=== PATIENT | female | born 1990 | race Caucasian/White ===

== ENCOUNTER 2020-04-23 12:26 | Outpatient (CLI) | payer OTHER ==
--- NOTE | 2020-04-24 16:41 | Ultrasound Report ---
PROCEDURE: OB F/U or Repeat INDICATIONS: SUPERVISION OF NORMAL , ULCERATIVE COLITI OUTSIDE/PRIOR DATING DATA: Last menstrual period (LMP): 08/20/2019. LMP-based estimated date of delivery (ANNA): 05/26/2020. First dating scan (date and location): 04/23/2020. Estimated date of delivery (ANNA) from first dating scan: 05/22/2020. TECHNIQUE: Real-time scanning was performed of the fetus, with image documentation and biometric measurements. COMPARISON: None. FINDINGS: General: A single living intrauterine gestation is present. Presentation: Vertex Placenta: Placental position is posterior fundal, without previa. Amniotic fluid index: 14.9 cm, within normal limits for gestational age. Largest pocket 4.25 cm. heart rate: 165 beats per minute. Maternal cervical canal: 4.5 cm long; normal length is 2.5 cm or more. biometrics: Biparietal diameter: 8.9 cm 36 weeks 2 days Head circumference: 33.6 cm 38 weeks 3 days Abdominal circumference: 31.1 cm 35 weeks 0 days Femur length: 6.5 cm 33 weeks 4 days Estimated gestational age from initial scan: not applicable. Composite gestational age from present scan: 35 weeks 6 days Estimated weight: 2594 g Measurement variability in biometric dating: +/- 10 days from 12-20 weeks gestation, +/- 2 weeks from 20-30 weeks gestation, +/- 3 weeks at 30 weeks gestation or more. Other: Not applicable. IMPRESSION: 1. Single live intrauterine with ultrasound gestational age today of 35 weeks 6 days with u ltrasound ANNA of 05/22/2020. It is noted no priors are currently available for comparison. If they be come available, they will be reviewed and an addendum issued. Reviewed by: Agnieszka Alvarez MD on 04/24/2020 4:40 PM PDT Approved by: Agnieszka Alvarez MD on 04/24/2020 4:40 PM PDT Station ID: [id number]
== END 2020-04-23 12:27 | disposition home or self-care (01) ==
LOC: DI 12:26
PROVIDERS: ATTEND Nurse Practitioner Obstetrics & Gynecology
DX: O99.613 Diseases of the digestive system complicating pregnancy, third trimester (principal); K51.90 Ulcerative colitis, unspecified, without complications; Z3A.35 35 weeks gestation of pregnancy
CPT/HCPCS: 76816

== ENCOUNTER 2020-05-04 16:00 | Outpatient (CLI) | payer OTHER | END 2020-05-04 23:59 | disposition home or self-care (01) | LOC: LAB.R 16:00 | PROVIDERS: ATTEND Obstetrics & Gynecology | DX: Z36.85 Encounter for antenatal screening for Streptococcus B (principal) | CPT/HCPCS: 87797 ==

== ENCOUNTER 2020-05-25 11:59 | Outpatient (CLI) | payer OTHER | END 2020-05-25 12:00 | disposition home or self-care (01) | LOC: LAB 11:59 | PROVIDERS: ATTEND Nurse Practitioner Obstetrics & Gynecology | DX: Z36.89 Encounter for other specified antenatal screening (principal); Z20.828 Contact with and (suspected) exposure to other viral communicable diseases ==

== ENCOUNTER 2020-05-26 19:47 | Inpatient (IN) | payer OTHER ==
[2020-05-26] MEDS ORDERED: METHYLERGONOVINE 0.2 MG/ML VIAL IM PRN (20:20)
[2020-05-26] MEDS ORDERED: LIDOCAINE-MPF 1% 30 ML VIAL ID PRN (20:20)
[2020-05-26] MEDS ORDERED: OXYTOCIN/SODIUM CHLORIDE 500 ML IV PRN (20:20)
[2020-05-26] MEDS ORDERED: miSOPROStoL 200 MCG TABLET BC PRN (20:20)
[2020-05-26] MEDS ORDERED: SODIUM CHLORIDE FLUSH 0.9% 10 ML SYRINGE IVP PRN (20:20)
[2020-05-26] MEDS ORDERED: OXYTOCIN 10 UNIT/ML VIAL IM PRN (20:20)
[2020-05-26] MEDS ORDERED: fentaNYL 100 MCG/2 ML VIAL IVP PRN (20:20)
[2020-05-26] MEDS ORDERED: CARBOPROST TROMETHAMINE 250 MCG/ML AMP IM PRN (20:20)
[2020-05-26] MEDS ORDERED: TRANEXAMIC ACID 1,000 MG in SODIUM CHLORIDE 0.9% 100ML 100 ML IV PRN (20:20)
--- NOTE | 2020-05-26 20:29 | HISTORY & PHYSICAL EXAMINATION ---
Admit History - Visit Reason Visit Reason: Contractions - : 3 Parity: 1 Care: positive: JACQUELIN-Hermes, Other ([facility] after transfer of care from [facility] at 33.3wks) Risk/History: positive: None Complications This : positive: None - Mother's Labs Mother's Blood Type: positive: A Mother's RH: positive: Positive GBS: positive: Group B Step Negative Rubella Status: positive: Non-immune - Other Maternal History Other Maternal History: Leela is a 29yo at 40.0wks gestation who presents with complaints of contractions. They started yesterday after getting her membranes swept. She was 2/50% in the office. She reports them as 8-10mins apart and moderate in intensity. She does report them as not as strong as when she had her son, however he was delivered within 15mins of arrival at the hospital! She reports a mild headache which she hasn't taken anything for. Denies LOF/VB Reports movement, although not as much as usual - care with [facility] which has been adequate, after transfer of care from [facility] at 33.3wks - Complications *anemia of -Dating Criteria *10.0wk US c/w LMP -OB Hx *G1: 2018. . 3402g Boy. *G2: 2019- SAB *G3: current -Medications * vitamin-daily *Ferrous Sulfate- daily -Allergies *Sulfa (critical) -Medical History *History of Hyperthyroidism- resolved *Ulcerative Colitis -Surgical History *[place] Teeth removal -Family History *Non contributory -Social History *Non contributory - Labs, Immunizations, and Findings *Initial U/S: 11/03/2019 @ 10wks c/w LMP dating *A pos/Rubella NON-IMMUNE- vaccinate *Genetic testing: Panorama -WNL *FAS: 01/08/2020 WNL, posterior placenta, no previa. 3VC. ILANA wnl. Cervix closed. Size c/w dating *Glucola 1hr 160 elevated - 3hr WNL; 74, 161, 162, 125 *Influenza: 04/10/2020 *TDAP 03/06/2020 *GBS neg *HSV: denies in self or partner *Breast pump Rx previously provided - has *MOD: Anticipate . Baby girl (Kurtis?) *pp contraception *pap: 11/03/2019 neg, HPV neg -SVE /-2/soft/mid/inact (was 2/50% in the office yesterday) -Vertex by digital exam -EFW by jaky's 7.5# -FHTs as charted Blood Pressures 130s/80s-90s -CBC-wnl -CMP- wnl -Urine protein/creatinine- 0.1 (wnl) -Assessment *29yo *New onset Gestational Hypertension (preeclampsia labs wnl) * Heart Tones- Category I -Plan *Admit to L&D *Expectant management, although due to early labor status and new onset GHTN, will consider augmentation if labor slow to progress. Discussed with patient and spouse. *Monitoring- Continuous *Comfort measures available- position changes, whirlpool tub, fentanyl, NOx, and epidural per maternal preference *Diet/Activity- per maternal preference *Anticipate Meds/Allgy - Allergies Allergies/Adverse Reactions: Allergies Allergy/AdvReac Type Severity Reaction Status Date / Time Sulfa (Sulfonamide Allergy Itching Verified 05/26/20 21:50 Antibiotics) Review of Systems - Neurological Neurological: reports: Headache - All Other Systems All Other Systems: reports: Reviewed and negative Physical - Abdominal Exam Vital Signs: Temp Pulse Resp BP Pulse Ox 36.9 C 90 20 134/93 H 98 05/26/20 20:05 05/26/20 20:05 05/26/20 20:05 05/26/20 20:05 05/26/20 20:05 Contraction Frequency (min/apart): 6-10 Contraction Intensity: positive: Moderate Uterine Resting Tone: positive: Soft - Monitoring Heart Rate Baseline: 155 Strip Review: positive: Category I - Presentation Presentation: positive: Vertex - Vaginal Exam Membranes: positive: Membranes intact Dilation (in cm): 3 Effacement (%): 80 Station: positive: -1 Cervical Position: positive: Midposition Plan for Labor - Plan For Labor I expect patient to be DC'd or transferred within 96 hours.: Yes
[2020-05-26] MEDS: ACETAMINOPHEN 325 MG TABLET PO SCH (21:00)
[2020-05-26] MEDS ORDERED: LACTATED RINGERS 1,000 ML IV SCH (21:00)
[2020-05-26 21:08] LABS: PROTEIN/CREATININE RATIO,URINE 0.1 (<=0.2)
[2020-05-26 21:50] LABS: BASOPHILS % (AUTO) 0.1 %; EOSINOPHILS # (AUTO) 0.1 10^3/uL (0.0-0.7); EOSINOPHILS % (AUTO) 0.9 %; HGB - HEMOGLOBIN 11.3 g/dL (12.0-16.0); LYMPHOCYTES # (AUTO) 1.3 10^3/uL (1.5-3.5); LYMPHOCYTES % (AUTO) 17.4 %; MEAN CORPUSCULAR HEMOGLOBIN 28.8 pg (27.0-31.0); MEAN CORPUSCULAR HGB CONC 32.5 g/dL (32.0-36.0); MEAN CORPUSCULAR VOLUME 88.8 fL (81.0-99.0); MEAN PLATELET VOLUME 11.8 fL (7.9-10.8); MONOCYTES # (AUTO) 0.5 10^3/uL (0.0-1.0); MONOCYTES % (AUTO) 7.1 %; NEUTROPHILS # (AUTO) 5.6 10^3/uL (1.5-6.6); NEUTROPHILS % (AUTO) 74.1 %; PLT - PLATELET COUNT 159 10^3/uL (130-450); RED BLOOD COUNT 3.92 10^6/uL (4.20-5.40); RED CELL DISTRIBUTION WIDTH 15.5 % (12.0-15.0); WHITE BLOOD COUNT 7.6 x10^3/uL (4.8-10.8)
[2020-05-26 22:03] LABS: ALBUMIN 3.1 g/dL (3.2-5.5); ALBUMIN/GLOBULIN RATIO 0.8 (1.0-2.2); BILIRUBIN,TOTAL 1.1 mg/dL (0.2-1.0); CALCIUM 9.1 mg/dL (8.5-10.3); CREATININE 0.5 mg/dL (0.4-1.0)
[2020-05-27] MEDS ORDERED: SODIUM CHLORIDE FLUSH 0.9% 10 ML SYRINGE IVP SCH (01:00)
[2020-05-27] MEDS ORDERED: HYDROCORTISONE 1% CREAM 28 GM TUBE PR PRN (06:06)
[2020-05-27] MEDS ORDERED: WITCH HAZEL/GLYCERIN 1 PAD TOP PRN (06:06)
[2020-05-27] MEDS ORDERED: MEASLES,MUMPS & RUBELLA VACC 0.5 ML VIAL SUBQ ONE (06:06)
--- NOTE | 2020-05-27 06:10 | DELIVERY NOTE ---
Delivery Note - Labor Labor: positive: Spontaneous - Delivery Method Delivery Method: positive: Spontaneous vaginal delivery - Presentation Presentation: positive: Vertex, JACKIE - left occiput anterior - Nuchal Cord Nuchal Cord: positive: None - Anesthetic Anesthetic Type: - Amniotic Fluid Description Amniotic Fluid Description: positive: Clear - Laceration Laceration: positive: 1st degree, Labial, Perineal - Suture Suture Type: positive: Vicryl Suture Size: positive: 3-0 - Delivery Outcome Delivery Outcome: positive: Livebirth - [place] : positive: Placed in direct skin contact with mother, Stimulated, [place] used [place] sex: positive: Female : 8 : 10 - Cord Cord: positive: 3 vessels - Placenta Placenta: positive: Intact, Spontaneous - Estimated Blood Loss Estimated Blood Loss (in cc): 250 - Post Delivery Events Post Delivery Events: positive: No post delivery events - Delivery Comments (Free Text/Narrative) Delivery Comments (Free Text/Narrative): Note: Labor: This 29 year old, , @40.0wks gestation by 10.0week Ultrasound, confirmed by LMP, presented @ 1999 in early labor, and was found to have elevated blood pressures, not in the severe range. Cervix was 3/80/-2 and ve rtex. FHR pattern demonstrated 155 baseline in a Category I pattern. Normal labor course. Nitrous Oxide used for pain management. AROM occurred @ 0445 per maternal request, and amount and color of fluid were noted to be moderate and clear. She progressed to c/c/spontaneously pushing at 0453. : Normal of a 3865gm female on 05/27/2020 @ 0508. Nuchal not present. The was placed on maternal abdomen, stimulated, dried and placed skin to skin. Apgars 8 at one minute and 10 at five minutes. The umbilical cord was allowed to stop pulsating at which time it was doubly clamped by CNM and cut by FOB. Physiologic/mixed management was done with watchful waiting, gentle cord traction, and fundal massage. Cord blood was obtained. Placenta delivered spontaneously and intact at 0516. Three vessel cord. EBL 250mL. Fourth Stage: Uterine fundus firm and without excessive bleeding. The perineum, vagina, and cervix were inspected and she was found to have sustained a first degree perineal and first degree right labial lacerations, which were repaired with 3-0 vicryl, using lidocaine for anesthetic, under sterile conditions in st andard fashion. Vaginal examination following repair was done. Tissues well approximated. initiated. Family bonding well. Both mother and baby are in stable condition.
[2020-05-27] MEDS: IBUPROFEN 600 MG TABLET PO SCH ×3 (06:25→17:45)
[2020-05-27] MEDS: ACETAMINOPHEN 325 MG TABLET PO SCH ×3 (08:46→20:52)
[2020-05-27] MEDS: DOCUSATE SODIUM 100 MG CAPSULE PO PRN (11:55)
[2020-05-28] MEDS: IBUPROFEN 600 MG TABLET PO SCH ×2 (00:01→06:02)
[2020-05-28] MEDS: ACETAMINOPHEN 325 MG TABLET PO SCH ×2 (03:06→09:53)
--- NOTE | 2020-05-28 07:20 | Discharge Plan ---
Discharge Plan Problem Reviewed?: Yes Disposition: Home, Self Care Condition: Good Diet: Cardiac Activity Restrictions: No Restrictions Shower Restrictions: No Weight Bearing: Full Weight No Smoking: If you smoke, Please STOP! Call for help. Follow-up with: Brittany Sun CNM, ARNP [Provider Admit Priv/Credential] -
--- NOTE | 2020-05-28 07:25 | PROVIDER PROGRESS NOTE ---
Subjective - Subjective Subjective: FINAL PROGRESS NOTE: S: Bonding well with baby. without difficulty and reports great experience with her first baby. Bleeding decreased and is light. Pain well controlled with oral medications. O: BP 115/77, T36.6, HR 84, RR 16 Heat RRR w/o M/G/R, lungs CTAB, abdomen soft and nontender with fundus firm at U-1. Perineum intact and repair w/o edema. Light lochia rubra. Bilateral LE's no edema. A: 29yo -->P2 PPD#1 s/p TSVD of viable female 1st degree labial laceration - intact P: Reviewed pp self care and warning s/sx. Advised continuation of PNV while . Encouraged continuation of ibuprofen and tylenol OTC PRN pain. Return in 1 week for routine pp visit or sooner PRN. Pt verbalized understanding and agrees to above plan. She denies further questions or concerns at this time. Objective - Vital Signs/Intake & Output Vital Signs: Vital Signs x48h Temp Pulse Resp BP Pulse Ox 05/28/20 04:10 36.6 C 84 16 115/77 98 05/28/20 00:00 36.7 C 84 16 108/71 98 Intake & Output: Intake & Output 05/25/20 05/26/20 05/27/20 05/28/20 23:59 23:59 23:59 23:59 Intake Total 125 350 Output Total 740 Balance 125 -390 - Lab Results Fish Bones: 05/26/20 21:35 05/26/20 21:35
--- NOTE | 2020-05-28 08:41 | DISCHARGE SUMMARY ---
Physician: JULIET Perez DATE OF ADMISSION: 05/26/2020 DATE OF DISCHARGE: 05/28/2020 DIAGNOSES ON ADMISSION 1. A 29-year-old G3, P1-0-1-1 at 40.0 weeks' gestation. 2. Active labor. DIAGNOSES ON DISCHARGE 1. A 29-year-old G3, P2-0-1-2, status post spontaneous vaginal delivery on 05/27/2020. 2. . 3. Normal recovery. BRIEF HISTORY: She is a patient of [facility], who presented on 05/26/2020, with co mplaints of contractions. Cervix was 3 cm dilated, 80% effaced, -2 station, vertex position. Patien t progressed to spontaneously deliver a viable female infant on 05/27/2020 at 0508. Apgars were 8 an d 10 at one and five minutes respectively. EBL 250 mL. The patient was noted to have first-degree p erineal and first-degree right labial lacerations, which were repaired using a 3-0 Vicryl under steri le conditions in a standard fashion. She has been doing well in her course. She is ambulating and tolerating a regular diet. She is urinating without difficulty and her lochia is normal. Her pain is well controlled with oral medications. She will be discharged home today on day #1 with instructions to continue he r vitamin while , and to continue ibuprofen and Tylenol [id number] as nee ded for pain management. She intends to follow up with midwifery care at [facility] in 1 week for a routine visit. She has been given precautions to call if she has any wor sening fevers, chills, abdominal pain, increased bleeding or foul-smelling vaginal lochia. TD: 05/28/2020 07:44
[2020-05-28] MEDS: DOCUSATE SODIUM 100 MG CAPSULE PO PRN (09:53)
[2020-05-28 09:59] VITALS: BP 113/75
[2020-05-28] MEDS ORDERED: MEASLES,MUMPS & RUBELLA VACC 0.5 ML VIAL SUBQ ONE (10:00)
--- NOTE | 2020-05-28 11:26 | Labor Flowsheet ---
Labor Flowsheet Datetime Report Generated by CPN: 05/28/2020 11:26 Datetime: 05/28/2020 09:58 VITAL SIGNS NBP Sys/Rebeca/Mean (mmHg): 113 : 75 : 83 Pulse: 74 Datetime: 05/27/2020 07:06 Stage of : Recovery Respirations: 18 PAIN Pain Scale: 1 Pain Presence: Intermittent Pain Type: Cramping Pain Location: Abdomen Pain Goal: 4 Pain Assessment Comments: Datetime: 05/27/2020 06:29 Pain Relief Measures: Pain Medication Given Datetime: 05/27/2020 05:12 Membranes Ruptured Date/Time: 05/27/2020 04:45 Datetime: 05/27/2020 05:07 STAGE 2 Pushing: Coached on Pushing; Urge to Push Pushing Position: Pushing with Contractions; Pushing Left Side Pushing Progress: Descent with Pushing Datetime: 05/27/2020 04:53 VAGINAL EXAM Dilatation (cm): 10.0 Effacement (%): 100 Station: 1 Datetime: 05/27/2020 04:45 [facility] Status: Ruptured Membranes Rupture Method: Artificial Amniotic Fluid Color: Clear Amniotic Fluid Amount: Moderate Amniotic Fluid Odor: Normal Datetime: 05/27/2020 04:29 UTERINE ACTIVITY Monitor Mode: External Frequency (min): 1.5-3 Quality: Strong Duration (sec): 70-120 Pattern: Normal: <= 5 Contractions in 10 Minutes Resting Tone (Palpate): Relaxed ASSESSMENT A Monitor Mode: Telemetry FHR Baseline Rate : 140 FHR Baseline Changes: No Baseline Change Variability: Moderate 6-25 bpm Accelerations: 15X15 Decelerations: None Datetime: 05/27/2020 04:19 Pain Coping: Breathing Through Contractions; Requesting Pain Medication or Epidural LaborFlag: Labor Datetime: 05/27/2020 04:11 I/O Interventions: Up to BR Datetime: 05/27/2020 04:03 Category: Category I Datetime: 05/27/2020 02:18 SpO2 (%): 97 Temperature (C): 36.6 Datetime: 05/27/2020 02:15 Vaginal Bleeding: Normal Show Cervix, Consistency: Soft Cervix, Position: Anterior Datetime: 05/27/2020 02:02 Monitor Interventions for UA: [place] Adjusted Comments: Intermittently picking up maternal HR with pt movement in bed and to bathroom Datetime: 05/27/2020 01:30 Contraction Comments: Occasional coupling noted Oxygen Method: Room Air Datetime: 05/27/2020 00:57 Vital Sign Comments: recheck; L tilt; between UC's Datetime: 05/27/2020 00:46 Communication Comments: CNM Romain on WHFBP unit Datetime: 05/27/2020 00:27 COMMUNICATION Communication: Call/Page Placed to Provider Provider Notified (Name): CNM Romain Notification Reason: Status Update; Status; Labor Status; Uterine Activity Datetime: 05/27/2020 00:25 Vaginal Exam Comments: Can easily stretch to 6cm with UC. Datetime: 05/27/2020 00:21 Patient Position/Activity: Left Tilt; Semi-Fowlers Patient Care Comments: Back to bed; states feeling increased pressure; had bloody show after urinat ing Datetime: 05/27/2020 00:00 Comfort Measures: Hot Shower/Tub/Spa; Family Support Datetime: 05/26/2020 23:18 Temperature Route: Oral Datetime: 05/26/2020 23:00 Vibroacoustic Stim: Datetime: 05/26/2020 22:55 Provider Reviewed Strip: No Datetime: 05/26/2020 21:35 PATIENT CARE IV/Blood Work: IV Started; Labs Drawn with IV Start; New IV Bag Hung Datetime: 05/26/2020 20:57 MATERNAL ASSESSMENT Level of Consciousness: Alert DTR's/Clonus: DTRs 1+; No Clonus Headache: Denies Breath Sounds, Left: Clear and Equal Breath Sounds, Right: Clear and Equal Nausea/Vomiting: Denies RUQ Epigastric Pain: Denies Maternal Comments: No longer c/o ORTIZ TEACHING Instructional Method: Verbal; Patient Instructed; Family/Support Person Instructed; Verbalized Unde rstanding Plan of Care: Plan of Care Discussed; Vaginal Delivery Unit Routine: Hardy to Room; Call Delaney; Bed; Visiting Policy; Phone/Cell Phone Use; Unit Personnel ; Handwashing; Flu/Illness Precautions; Monitoring; IV Pumps; Safety/Fall Risk Prevention; Diet /Nutrition Services; Bathroom Privileges; Medications Labor/Induction: Augmentation Pain Management: Pain Scale/Goals; Comfort Measures Related: Hydration; Activity and Rest Teaching Comments: Nitrous oxide reviewed; nipple stimulation reviewed by ERICK Hoyos
== END 2020-05-28 10:55 | disposition home or self-care (01) | DRG 807 ==
LOC: WFO 19:47 → FBP 19:51 → WFO 20:19 → FBP 20:20
PROVIDERS: ADMIT Advanced Practice Midwife; ATTEND Nurse Practitioner Obstetrics & Gynecology
PROC: 10E0XZZ Delivery of Products of Conception, External Approach (ICD-10-PCS; principal; 2020-05-27)
PROC: 10907ZC Drainage of Amniotic Fluid, Therapeutic from Products of Conception, Via Natural or Artificial Opening (ICD-10-PCS; 2020-05-27)
DX: O13.4 Gestational [pregnancy-induced] hypertension without significant proteinuria, complicating childbirth (principal); Z37.0 Single live birth; O99.02 Anemia complicating childbirth; D64.9 Anemia, unspecified; O70.0 First degree perineal laceration during delivery; O48.0 Post-term pregnancy; Z3A.40 40 weeks gestation of pregnancy
CPT/HCPCS: 80053; 82570; 84156; 85025; 86850; 86900; 86901; 99213; A9270; J7120

== ENCOUNTER 2020-10-31 16:42 | Outpatient (CLI) | payer OTHER ==
--- NOTE | 2020-11-01 10:34 | Ultrasound Report ---
PROCEDURE: Pelvic w/Transvaginal INDICATIONS: ABN UTERINE BLEEDING TECHNIQUE: Real-time scanning was performed of the pelvic organs, with image documentation. Additional endovagi nal scanning was necessary due to incomplete visualization of the adnexal and endometrial structures by transabdominal scanning. COMPARISON: OB ultrasound 04/23/2020. FINDINGS: No pathologic free abdominal or pelvic fluid. Uterus: Uterus is anteverted and normal in size at 3.9 x 5.6 x 7.6 cm. The endometrium measures 6.0 mm in combined thickness. Ovaries: The right ovary measures 3.3 x 2.8 x 3.5 cm with a simple 2.1 cm cyst within, and the left ovary is free of cyst measuring 3.1 x 1.3 x 2.1 cm. IMPRESSION: No endometrial lining abnormality is seen. No uterine fibroid is found. Note is made of a simple appe aring 2.1 cm maximal dimension right ovarian cyst, simple in character. Source of current symptoms is not seen. Reviewed by: Marco A Valderrama MD on 11/01/2020 10:32 AM PDT Approved by: Marco A Valderrama MD on 11/01/2020 10:32 AM PDT Station ID: [id number]
== END 2020-10-31 16:43 | disposition home or self-care (01) ==
LOC: DI 16:42
PROVIDERS: ATTEND Obstetrics & Gynecology
DX: N83.291 Other ovarian cyst, right side (principal)

== ENCOUNTER 2022-05-07 11:04 | Outpatient (CLI) | payer OTHER | END 2022-05-07 11:05 | disposition home or self-care (01) | LOC: LAB 11:04 | PROVIDERS: ATTEND Nurse Practitioner Obstetrics & Gynecology | DX: O20.0 Threatened abortion (principal) | CPT/HCPCS: 36415; 84702 ==

== ENCOUNTER 2022-05-09 10:32 | Outpatient (CLI) | payer OTHER | END 2022-05-09 10:33 | disposition home or self-care (01) | LOC: LAB.N 10:32 | PROVIDERS: ATTEND Nurse Practitioner Obstetrics & Gynecology | DX: O20.0 Threatened abortion (principal) | CPT/HCPCS: 36415; 84702 ==

== ENCOUNTER 2022-05-19 09:24 | Outpatient (CLI) | payer OTHER | END 2022-05-19 09:25 | disposition home or self-care (01) | LOC: LAB 09:24 | PROVIDERS: ATTEND Nurse Practitioner Obstetrics & Gynecology | DX: O20.0 Threatened abortion (principal) | CPT/HCPCS: 36415; 84702 ==

== ENCOUNTER 2022-06-04 10:33 | Outpatient (CLI) | payer OTHER | END 2022-06-04 10:34 | disposition home or self-care (01) | LOC: LAB 10:33 | PROVIDERS: ATTEND Nurse Practitioner Obstetrics & Gynecology | DX: O20.0 Threatened abortion (principal) | CPT/HCPCS: 36415; 84702 ==

== ENCOUNTER 2022-06-24 11:17 | Outpatient (CLI) | payer OTHER | END 2022-06-24 11:18 | disposition home or self-care (01) | LOC: LAB 11:17 | PROVIDERS: ATTEND Nurse Practitioner Obstetrics & Gynecology | DX: O20.0 Threatened abortion (principal) | CPT/HCPCS: 36415; 84702 ==

== ENCOUNTER 2022-07-08 10:54 | Outpatient (CLI) | payer OTHER ==
[2022-07-08 11:06] LABS: HCT - HEMATOCRIT 40.7 % (37.0-47.0); HGB - HEMOGLOBIN 13.2 g/dL (12.0-16.0); MEAN CORPUSCULAR HEMOGLOBIN 27.8 pg (27.0-31.0); MEAN CORPUSCULAR HGB CONC 32.4 g/dL (32.0-36.0); MEAN CORPUSCULAR VOLUME 85.7 fL (81.0-99.0); MEAN PLATELET VOLUME 11.3 fL (7.9-10.8); RED BLOOD COUNT 4.75 10^6/uL (4.20-5.40); RED CELL DISTRIBUTION WIDTH 13.2 % (12.0-15.0); WHITE BLOOD COUNT 4.6 x10^3/uL (4.8-10.8)
== END 2022-07-08 10:55 | disposition home or self-care (01) ==
LOC: LAB 10:54
PROVIDERS: ATTEND Nurse Practitioner Obstetrics & Gynecology
DX: O03.9 Complete or unspecified spontaneous abortion without complication (principal); R53.83 Other fatigue
CPT/HCPCS: 36415; 84702; 85027

== ENCOUNTER 2022-07-22 09:57 | Outpatient (CLI) | payer OTHER ==
[2022-07-22 10:06] LABS: HCT - HEMATOCRIT 38.6 % (37.0-47.0); HGB - HEMOGLOBIN 12.6 g/dL (12.0-16.0); MEAN CORPUSCULAR HEMOGLOBIN 28.4 pg (27.0-31.0); MEAN CORPUSCULAR HGB CONC 32.6 g/dL (32.0-36.0); MEAN CORPUSCULAR VOLUME 87.1 fL (81.0-99.0); MEAN PLATELET VOLUME 11.3 fL (7.9-10.8); RED BLOOD COUNT 4.43 10^6/uL (4.20-5.40); RED CELL DISTRIBUTION WIDTH 13.1 % (12.0-15.0); WHITE BLOOD COUNT 3.8 x10^3/uL (4.8-10.8)
== END 2022-07-22 09:58 | disposition home or self-care (01) ==
LOC: LAB 09:57
PROVIDERS: ATTEND Nurse Practitioner Obstetrics & Gynecology
DX: O03.9 Complete or unspecified spontaneous abortion without complication (principal); R53.83 Other fatigue
CPT/HCPCS: 36415; 84702; 85027

== ENCOUNTER 2022-08-07 09:59 | Outpatient (CLI) | payer OTHER | END 2022-08-07 10:00 | disposition home or self-care (01) | LOC: LAB 09:59 | PROVIDERS: ATTEND Nurse Practitioner Obstetrics & Gynecology | DX: O03.9 Complete or unspecified spontaneous abortion without complication (principal) | CPT/HCPCS: 36415; 84702 ==

== ENCOUNTER 2022-08-28 09:59 | Outpatient (CLI) | payer OTHER | END 2022-08-28 10:00 | disposition home or self-care (01) | LOC: LAB 09:59 | PROVIDERS: ATTEND Nurse Practitioner Obstetrics & Gynecology | DX: O03.9 Complete or unspecified spontaneous abortion without complication (principal) | CPT/HCPCS: 36415; 84702 ==

== ENCOUNTER 2023-01-07 10:35 | Outpatient (CLI) | payer OTHER ==
[2023-01-07 10:54] LABS: BASOPHILS % (AUTO) 0.6 %; EOSINOPHILS % (AUTO) 0.7 %; HCT - HEMATOCRIT 37.9 % (37.0-47.0); HGB - HEMOGLOBIN 12.9 g/dL (12.0-16.0); LYMPHOCYTES # (AUTO) 1.2 10^3/uL (1.5-3.5); MEAN CORPUSCULAR HEMOGLOBIN 29.3 pg (27.0-31.0); MEAN CORPUSCULAR VOLUME 85.9 fL (81.0-99.0); MEAN PLATELET VOLUME 11.5 fL (7.9-10.8); MONOCYTES # (AUTO) 0.3 10^3/uL (0.0-1.0); MONOCYTES % (AUTO) 6.2 %; NEUTROPHILS # (AUTO) 3.7 10^3/uL (1.5-6.6); NEUTROPHILS % (AUTO) 69.5 %; PLT - PLATELET COUNT 178 10^3/uL (130-450); RED BLOOD COUNT 4.41 10^6/uL (4.20-5.40); RED CELL DISTRIBUTION WIDTH 13.1 % (12.0-15.0); WHITE BLOOD COUNT 5.3 x10^3/uL (4.8-10.8)
[2023-01-08 05:13] LABS: HCV AB Non Reactive (Non Reactive); HIV SCREEN 4TH GENERATION Non Reactive (Non Reactive)
[2023-01-08 06:10] LABS: HBsAG SCREEN Negative (Negative)
[2023-01-08 07:10] LABS: RPR Non Reactive (Non Reactive)
[2023-01-08 08:10] LABS: VARICELLA-ZOSTER AB IGG 2270 index (Immune >165)
== END 2023-01-07 10:36 | disposition home or self-care (01) ==
LOC: LAB 10:35
PROVIDERS: ATTEND Nurse Practitioner Obstetrics & Gynecology
DX: Z36.89 Encounter for other specified antenatal screening (principal)
CPT/HCPCS: 36415; 85025; 86592; 86762; 86787; 86803; 86850; 86900; 86901; 87340; 87389

== ENCOUNTER 2023-01-12 15:56 | Outpatient (CLI) | payer OTHER ==
--- NOTE | 2023-01-13 09:57 | Ultrasound Report ---
PROCEDURE: OB First Trimester INDICATIONS: DICHORIONIC- DIAMNIOTIC TWIN OUTSIDE/PRIOR DATING DATA: Last menstrual period (LMP): 10/31/2022. LMP-based estimated date of delivery (ANNA): 08/07/2023. First dating scan (date and location): 01/23/2024. Estimated date of delivery (ANNA) from first dating scan: 08/04/2023. TECHNIQUE: Real-time scanning was performed of the fetus and maternal pelvic organs, with image documentation. COMPARISON: None FINDINGS: Intrauterine diamniotic dichorionic twin Embryo: [place]-rump length 3.9 cm/3.7 cm: 10 weeks 6 days/10 weeks 4 days Mean gestational sac diameter 3.9 cm/4.7 cm: 19 weeks 2 days/10 weeks 2 days Heart rate: 178/178 bpm. Other: No perigestational fluid collection. Measurement variability in dating: +/- 4 weeks by LMP, +/- 7 days by mean sac diameter (use before 6 weeks gestation if crown-rump length not able to be measured), +/- 5 days by crown-rump length (6-12 weeks gestation). Maternal organs: Ovaries demonstrate 2 left corpus luteal cysts IMPRESSION: 1. Fetus A: Left-sided twin closer to the cervix measuring 10 weeks 6 days. 2. Fetus B: Right-sided twin measuring 10 weeks 4 days. Reviewed by: Vikas Spencer on 01/13/2023 8:55 AM KYLE Approved by: Vikas Spencer on 01/13/2023 8:55 AM KYLE Station ID: [id number]
--- NOTE | 2023-01-13 09:58 | Ultrasound Report ---
PROCEDURE: OB First Trimester Addl Fetus INDICATIONS: DICHORIONIC- DIAMNIOTIC TWIN OUTSIDE/PRIOR DATING DATA: Last menstrual period (LMP): 10/31/2022. LMP-based estimated date of delivery (ANNA): 08/07/2023. First dating scan (date and location): 01/23/2024. Estimated date of delivery (ANNA) from first dating scan: 08/04/2023. TECHNIQUE: Real-time scanning was performed of the fetus and maternal pelvic organs, with image documentation. COMPARISON: None FINDINGS: Intrauterine diamniotic dichorionic twin Embryo: [place]-rump length 3.9 cm/3.7 cm: 10 weeks 6 days/10 weeks 4 days Mean gestational sac diameter 3.9 cm/4.7 cm: 19 weeks 2 days/10 weeks 2 days Heart rate: 178/178 bpm. Other: No perigestational fluid collection. Measurement variability in dating: +/- 4 weeks by LMP, +/- 7 days by mean sac diameter (use before 6 weeks gestation if crown-rump length not able to be measured), +/- 5 days by crown-rump length (6-12 weeks gestation). Maternal organs: Ovaries demonstrate 2 left corpus luteal cysts IMPRESSION: 1. Fetus A: Left-sided twin closer to the cervix measuring 10 weeks 6 days. 2. Fetus B: Right-sided twin measuring 10 weeks 4 days. Reviewed by: Vikas Spencer on 01/13/2023 8:56 AM KYLE Approved by: Vikas Spencer on 01/13/2023 8:56 AM AKDT No change from OB First Trimester with report dated 01/13/2023 8:55 AM. Station ID: [id number]
== END 2023-01-12 15:57 | disposition home or self-care (01) ==
LOC: DI 15:56
PROVIDERS: ATTEND Nurse Practitioner Obstetrics & Gynecology
DX: O30.041 Twin pregnancy, dichorionic/diamniotic, first trimester (principal); Z3A.10 10 weeks gestation of pregnancy

== ENCOUNTER 2023-01-20 10:37 | Outpatient (CLI) | payer OTHER | END 2023-01-20 10:38 | disposition home or self-care (01) | LOC: LAB 10:37 | PROVIDERS: ATTEND Nurse Practitioner Obstetrics & Gynecology | DX: Z13.79 Encounter for other screening for genetic and chromosomal anomalies (principal) | CPT/HCPCS: 36415 ==

== ENCOUNTER 2023-02-06 08:00 | Outpatient (CLI) | payer OTHER ==
[2023-02-06 12:55] LABS: BILIRUBIN,URINE NEGATIVE (NEGATIVE); GLUCOSE, URINE (UA) NEGATIVE (NEGATIVE); KETONES,URINE (UA) NEGATIVE (NEGATIVE); LEUKOCYTE ESTERASE, URINE NEGATIVE (NEGATIVE); NITRITE,URINE NEGATIVE (NEGATIVE); OCCULT BLOOD,URINE NEGATIVE (NEGATIVE); PH,URINE 6.5 PH (5.0-7.5); PROTEIN,URINE NEGATIVE (NEGATIVE); UROBILINOGEN,URINE 0.2 (NORMAL) E.U./dL (NORMAL)
[2023-02-06 13:44] LABS: BACTERIA,URINE None Seen /HPF (None Seen); CLARITY,URINE CLEAR (CLEAR); RBC,URINE 0-5 /HPF (0-5); SQUAMOUS EPITHELIAL CELL,UR FEW Squamous (<= Few); WBC,URINE 0-3 /HPF (0-5)
[2023-02-06 19:21] LABS: CHLAMYDIA TRACHOMATIS DNA NEGATIVE (NEGATIVE); NEISSERIA GONORRHOEAE DNA NEGATIVE (NEGATIVE); TRICHOMONAS VAGINALIS DNA NEGATIVE (NEGATIVE)
== END 2023-02-06 23:59 | disposition home or self-care (01) ==
LOC: LAB.WC 08:00
PROVIDERS: ATTEND Nurse Practitioner
DX: Z34.90 Encounter for supervision of normal pregnancy, unspecified, unspecified trimester (principal); Z36.89 Encounter for other specified antenatal screening
CPT/HCPCS: 81001; 87086; 87491; 87591; 87661

== ENCOUNTER 2023-05-11 10:03 | Outpatient (CLI) | payer OTHER ==
[2023-05-11 11:26] LABS: HCT - HEMATOCRIT 30.2 % (37.0-47.0); HGB - HEMOGLOBIN 10.2 g/dL (12.0-16.0); MEAN CORPUSCULAR HEMOGLOBIN 30.4 pg (27.0-31.0); MEAN CORPUSCULAR HGB CONC 33.8 g/dL (32.0-36.0); MEAN CORPUSCULAR VOLUME 89.9 fL (81.0-99.0); MEAN PLATELET VOLUME 10.6 fL (7.9-10.8); RED BLOOD COUNT 3.36 10^6/uL (4.20-5.40); WHITE BLOOD COUNT 6.1 x10^3/uL (4.8-10.8)
== END 2023-05-11 10:04 | disposition home or self-care (01) ==
LOC: LAB 10:03
PROVIDERS: ATTEND Nurse Practitioner
DX: O09.891 Supervision of other high risk pregnancies, first trimester (principal)
CPT/HCPCS: 36415; 82950; 85027

== ENCOUNTER 2023-05-19 08:01 | Outpatient (CLI) | payer OTHER ==
[2023-05-19 08:53] LABS: GTT GLUCOSE,FASTING 84 mg/dL (74-109)
== END 2023-05-19 08:02 | disposition home or self-care (01) ==
LOC: LAB 08:01
PROVIDERS: ATTEND Nurse Practitioner
DX: O99.810 Abnormal glucose complicating pregnancy (principal)
CPT/HCPCS: 36415; 82951; 82952

== ENCOUNTER 2023-06-16 14:26 | Outpatient (CLI) | payer OTHER ==
[2023-06-16 15:29] VITALS: BP 114/73
--- NOTE | 2023-06-16 18:47 | PROCEDURE REPORT ---
- HPI Diagnosis/Indication for NST: Other (twins) Current EDU 08/07/23 Gestation 32 Weeks and 4 Days 5 Para 2 Vital Signs Temperature 98.6 F 06/16/23 15:20 Heart Rate 90 06/16/23 15:20 Respiratory Rate 18 06/16/23 15:20 Blood Pressure 114/73 06/16/23 15:20 Temperature 98.6 F 06/16/23 15:20 Heart Rate 90 06/16/23 15:20 Respiratory Rate 18 06/16/23 15:20 Blood Pressure 114/73 06/16/23 15:20 O2 Saturation If not protocol: Oxygen Flow, liters/minute - NST Procedure NST Procedure Start Date 06/16/23 Start Time 14:55 Stop Time 15:19 Vibroacoustic Stimulation Used No Patient States Movement Yes twin NST. each baby tracing quite separately from the other. A: 135 baseline, acels, no decles. moderate variability. reactive nst. B: 140 baseline, acels, no decels. mod variability. reactive NST. - Results and Plan Findings/Impression: reactive NST x 2. Plan: care as planned
== END 2023-06-16 15:30 | disposition home or self-care (01) ==
LOC: WFO 14:26 → FBP 14:27 → WFO 15:30
PROVIDERS: ATTEND Obstetrics & Gynecology
DX: O30.043 Twin pregnancy, dichorionic/diamniotic, third trimester (principal); O24.419 Gestational diabetes mellitus in pregnancy, unspecified control; Z3A.32 32 weeks gestation of pregnancy
CPT/HCPCS: 59025

== ENCOUNTER 2023-06-24 18:26 | Outpatient (CLI) | payer OTHER ==
--- NOTE | 2023-06-26 09:53 | Ultrasound Report ---
PROCEDURE: OB Biophysical Profile INDICATIONS: GESTATIONAL DIABETES, TWINS OUTSIDE/PRIOR DATING DATA: Last menstrual period (LMP): 10/31/2022. LMP-based estimated date of delivery (ANNA): 08/07/2023. First dating scan (date and location): 01/12/2023 at . Estimated date of delivery (ANNA) from first dating scan: 08/04/2023. The below data below was generated using the clinical ANNA of 08/07/2023 TECHNIQUE: Real-time scanning was performed of the fetus, with image documentation and biometric christelle surements. Biophysical profile was also obtained. COMPARISON: OB ultrasound, 01/12/2023. FINDINGS: General: Dichorionic diamniotic living intrauterine twin gestations are present. Twin A Presentation: Breech Placenta: Placental position is anterior. Intrauterine gestation Amniotic fluid index: 10.9 cm; deepest pocket 5.3 cm. heart rate: 140 beats per minute. Biophysical profile: 6/8 Tone: 2 points. Movement: 2 points. Respiration: 0 points. Largest pocket of fluid: 2 points. Twin B Presentation: Breech Placenta: Placental position is anterior. Amniotic fluid index: 10.7 cm; deepest pocket 2.9 cm. heart rate: 138 beats per minute. Biophysical profile: 8/8 Tone: 2 points. Movement: 2 points. Respiration: 2 points. Largest pocket of fluid: 2 points. biometrics: Not performed Estimated gestational age: 33 weeks 5 days. Measurement variability in biometric dating: +/- 10 days from 12-20 weeks gestation, +/- 2 weeks from 20-30 weeks gestation, +/- 3 weeks at 30 weeks gestation or later. IMPRESSION: 1. Live twin intrauterine gestations redemonstrated. 2. Twin A biophysical profile score 6/8. 3. Twin B biophysical profile score 8/8. Reviewed by: Kemar Beach MD on 06/26/2023 9:52 AM PST Approved by: Kemar Beach MD on 06/26/2023 9:52 AM PST Station ID: [id number]
== END 2023-06-24 18:27 | disposition home or self-care (01) ==
LOC: DI 18:26
PROVIDERS: ATTEND Obstetrics & Gynecology
DX: O24.419 Gestational diabetes mellitus in pregnancy, unspecified control (principal); O30.043 Twin pregnancy, dichorionic/diamniotic, third trimester; Z3A.33 33 weeks gestation of pregnancy

== ENCOUNTER 2023-06-26 15:35 | Outpatient (CLI) | payer OTHER ==
[2023-06-26 16:04] VITALS: BP 107/78
--- NOTE | 2023-06-26 16:26 | PROCEDURE REPORT ---
- HPI Diagnosis/Indication for NST: Multiple gestation (twins di/di) Vital Signs Temperature 98.4 F 06/26/23 15:50 Heart Rate 79 06/26/23 15:50 Respiratory Rate 18 06/26/23 15:50 Blood Pressure 107/78 06/26/23 15:50 Temperature 98.4 F 06/26/23 15:50 Heart Rate 79 06/26/23 15:50 Respiratory Rate 18 06/26/23 15:50 Blood Pressure 107/78 06/26/23 15:50 O2 Saturation If not protocol: Oxygen Flow, liters/minute - NST Procedure NST Procedure Start Time 14:55 Stop Time 15:19 NST for twins reviewed in real time. baby A 120 baseline moderate variability. acels and no decels. baby B 120 baseline moderate variability acels and no decels. babies are tracing on separate lines. - Results and Plan Findings/Impression: reactive NST for baby a and baby b Plan: as previously scheduled.
[2023-06-26 16:42] VITALS: O2SAT 98
== END 2023-06-26 16:30 | disposition home or self-care (01) ==
LOC: WFO 15:35 → FBP 15:36 → WFO 16:30
PROVIDERS: ATTEND Obstetrics & Gynecology
DX: O24.419 Gestational diabetes mellitus in pregnancy, unspecified control (principal); O30.049 Twin pregnancy, dichorionic/diamniotic, unspecified trimester
CPT/HCPCS: 59025

== ENCOUNTER 2023-06-30 15:32 | Outpatient (CLI) | payer OTHER ==
--- NOTE | 2023-06-30 16:23 | PROCEDURE REPORT ---
- HPI Diagnosis/Indication for NST: Multiple gestation (twin gestation, gestational diabetes) Vital Signs Temperature 98.2 F 06/30/23 15:37 Temperature 98.2 F 06/30/23 15:37 Heart Rate Respiratory Rate Blood Pressure O2 Saturation If not protocol: Oxygen Flow, liters/minute - NST Procedure NST Procedure Start Time 15:47 Stop Time 16:20 34+4 weeks twin gestation, gestational diabetes baby A: 130, moderate variability, +accels, no decels baby B: 140, moderate variability, +accels, no decels reactive NST Uterine irritation, patient not feeling contractions
[2023-06-30 17:04] VITALS: BP 114/72
== END 2023-06-30 16:30 | disposition home or self-care (01) ==
LOC: WFO 15:32 → FBP 15:33 → WFO 16:30
PROVIDERS: ATTEND Obstetrics & Gynecology
DX: O30.003 Twin pregnancy, unspecified number of placenta and unspecified number of amniotic sacs, third trimester (principal); O24.419 Gestational diabetes mellitus in pregnancy, unspecified control; Z3A.34 34 weeks gestation of pregnancy
CPT/HCPCS: 59025

== ENCOUNTER 2023-07-01 18:29 | Outpatient (CLI) | payer OTHER ==
--- NOTE | 2023-07-02 20:57 | Ultrasound Report ---
PROCEDURE: OB Biophysical Profile INDICATIONS: GESTATIONAL DIABETES, TWINS OUTSIDE/PRIOR DATING DATA: Last menstrual period (LMP): 10/31/2022. LMP-based estimated date of delivery (ANNA): 08/07/2023. First dating scan (date and location): 01/12/2023. Estimated date of delivery (ANNA) from first dating scan: 08/04/2023. The below data below was generated using the clinical ANNA of 08/07/2023 TECHNIQUE: Real-time scanning was performed of the fetus, with image documentation. Biophysical pro file was also obtained. COMPARISON: OB ultrasound 06/24/2023. FINDINGS: General: Diamniotic dichorionic twin gestation. Twin A: Presentation: Breech Placenta: Placental position is anterior, without previa. Amniotic fluid index: 11.9 cm, normal for gestational age. Largest pocket 5.6 cm. heart rate: 141 beats per minute. Male Twin B: Presentation: Breech Placenta: Placental position is anterior, without previa. Amniotic fluid index: 13.7 cm, normal for gestational age. Largest pocket 4 cm. heart rate: 158 beats per minute. Female Composite gestational age from prior datin weeks 5 days Twin A: Biophysical profile: Tone: 2 points. Movement: 2 points. Respiration: 2 points. Largest pocket of fluid: 2 points. Twin B: Biophysical profile: Tone: 2 points. Movement: 2 points. Respiration: 2 points. Largest pocket of fluid: 2 points. IMPRESSION: 1. Diamniotic dichorionic twin at 24 weeks 5 days based on prior dating. 2. Normal placenta and amniotic fluid. 3. Normal biophysical profile for each fetus. Score 8 out of 8. Reviewed by: Kwame Yun MD on 07/02/2023 8:55 PM PST Approved by: Kwame Yun MD on 07/02/2023 8:55 PM PST Station ID: [id number]
== END 2023-07-01 18:30 | disposition home or self-care (01) ==
LOC: DI 18:29
PROVIDERS: ATTEND Obstetrics & Gynecology
DX: O24.419 Gestational diabetes mellitus in pregnancy, unspecified control (principal); O30.042 Twin pregnancy, dichorionic/diamniotic, second trimester; Z3A.24 24 weeks gestation of pregnancy

== ENCOUNTER 2023-07-10 15:04 | Outpatient (CLI) | payer OTHER ==
[2023-07-10 15:35] VITALS: BP 116/79
--- NOTE | 2023-07-10 16:12 | PROCEDURE REPORT ---
- HPI Diagnosis/Indication for NST: Other (di/di twins) Vital Signs Temperature 98.2 F 07/10/23 15:25 Heart Rate 89 07/10/23 15:25 Respiratory Rate 18 07/10/23 15:25 Blood Pressure 116/79 07/10/23 15:25 Temperature 98.2 F 07/10/23 15:30 Heart Rate 101 H 07/10/23 15:30 Respiratory Rate 20 07/10/23 15:30 Blood Pressure 116/79 07/10/23 15:30 O2 Saturation If not protocol: Oxygen Flow, liters/minute - NST Procedure NST Procedure Start Time 15:30 Stop Time 16:40 roseann twins. very active. many large acels, no decels. moderate variability. for both babies. - Results and Plan Findings/Impression: reactive NST for baby a and for baby b Plan: care as scheduled
== END 2023-07-10 16:23 | disposition home or self-care (01) ==
LOC: WFO 15:04 → FBP 15:06 → WFO 16:23
PROVIDERS: ATTEND Obstetrics & Gynecology
DX: O30.049 Twin pregnancy, dichorionic/diamniotic, unspecified trimester (principal); O24.419 Gestational diabetes mellitus in pregnancy, unspecified control; Z3A.00 Weeks of gestation of pregnancy not specified
CPT/HCPCS: 59025

== ENCOUNTER 2023-07-15 08:00 | Outpatient (CLI) | payer OTHER | END 2023-07-15 08:01 | disposition home or self-care (01) | LOC: LAB.WC 08:00 | PROVIDERS: ATTEND Obstetrics & Gynecology | DX: O30.043 Twin pregnancy, dichorionic/diamniotic, third trimester (principal); Z36.85 Encounter for antenatal screening for Streptococcus B | CPT/HCPCS: 87797 ==

== ENCOUNTER 2023-07-15 18:23 | Outpatient (CLI) | payer OTHER ==
--- NOTE | 2023-07-16 12:08 | Ultrasound Report ---
PROCEDURE: OB Biophysical Profile INDICATIONS: GESTATIONAL DIABETES, TWINS OUTSIDE/PRIOR DATING DATA: Last menstrual period (LMP): 10/31/2022. LMP-based estimated date of delivery (ANNA): 08/07/2023. First dating scan (date and location): 01/12/2023, Dr. Rush. Estimated date of delivery (ANNA) from first dating scan: 08/04/2023. TECHNIQUE: Real-time scanning was performed of the fetus, with image documentation and biometric christelle surements. Biophysical profile was also obtained. COMPARISON: Biophysical profile dated 07/01/2023 FINDINGS: General: Diamniotic dichorionic twin gestation redemonstrated. Twin A: Presentation: Breech Placenta: Placental position is anterior, without previa. Amniotic fluid index: 9.9 centimeters. heart rate: 136 beats per minute. Maternal cervical canal: Not imaged Estimated gestational age from initial scan: 36 weeks 5 days Twin B: Presentation: Breech Placenta: Placental position is anterior, without previa. Amniotic fluid index: 13.3 centimeters heart rate: 133 beats per minute. Maternal cervical canal: Not imaged Estimated gestational age from initial scan: 36 weeks 5 days Biophysical profile: Twin A: Tone: 2 points. Movement: 2 points. Respiration: 2 points. Largest pocket of fluid: 2 points. Twin B: Tone: 2 points. Movement: 2 points. Respiration: 2 points. Largest pocket of fluid: 2 points. IMPRESSION: 1. Diamniotic dichorionic twin gestation redemonstrated both fetuses in breech position. 2. 02/17 biophysical profile for both twin A and twin B. Reviewed by: Renu Rogers MD on 07/16/2023 12:07 PM PST Approved by: Renu Rogers MD on 07/16/2023 12:07 PM PST Station ID: [id number]
== END 2023-07-15 18:24 | disposition home or self-care (01) ==
LOC: DI 18:23
PROVIDERS: ATTEND Obstetrics & Gynecology
DX: O24.419 Gestational diabetes mellitus in pregnancy, unspecified control (principal); O30.043 Twin pregnancy, dichorionic/diamniotic, third trimester; Z3A.36 36 weeks gestation of pregnancy; O32.1XX0 Maternal care for breech presentation, not applicable or unspecified
CPT/HCPCS: 87797

== ENCOUNTER 2023-07-17 10:05 | Outpatient (CLI) | payer OTHER ==
[2023-07-17 12:49] VITALS: BP 119/86; O2SAT 96
--- NOTE | 2023-07-17 16:13 | PROCEDURE REPORT ---
- HPI Diagnosis/Indication for NST: Other (twins) Current 5 Para 2 Vital Signs Temperature 98.4 F 07/17/23 10:20 Heart Rate 82 07/17/23 10:20 Respiratory Rate 18 07/17/23 10:20 Blood Pressure 119/86 H 07/17/23 10:20 O2 Saturation 96 07/17/23 10:20 Temperature 98.4 F 07/17/23 11:22 Heart Rate 82 07/17/23 10:20 Respiratory Rate 18 07/17/23 10:20 Blood Pressure 119/86 H 07/17/23 10:20 O2 Saturation 96 07/17/23 10:20 If not protocol: Oxygen Flow, liters/minute - NST Procedure NST Procedure Start Date 07/17/23 Start Time 10:18 Stop Time 10:38 Vibroacoustic Stimulation Used No Patient States Movement Yes - Results and Plan Findings/Impression: NST baby A: 140 mod meg + A cells no D cells reactive NST Baby B: 145 mod meg + A cells no D cells reactive Plan: OK to D/C home with precautions continue scheduled ANC has C/S scheduled this coming thursday.
== END 2023-07-17 11:08 | disposition home or self-care (01) ==
LOC: WFO 10:05 → FBP 10:10 → WFO 11:08
PROVIDERS: ATTEND Obstetrics & Gynecology
DX: O30.049 Twin pregnancy, dichorionic/diamniotic, unspecified trimester (principal); Z3A.00 Weeks of gestation of pregnancy not specified
CPT/HCPCS: 59025

== ENCOUNTER 2023-07-21 05:56 | Inpatient (IN) | payer OTHER ==
[2023-07-21] MEDS ORDERED: CITRIC ACID/SODIUM CITRATE 15 ML UDC PO ONE (06:08)
[2023-07-21] MEDS ORDERED: ACETAMINOPHEN 500 MG TABLET PO ONE (06:08)
[2023-07-21] MEDS ORDERED: ceFAZolin (2G) 2 GM in SODIUM CHLORIDE 0.9% MINIBAG 100 ML IV ONE (06:16)
[2023-07-21] MEDS ORDERED: LACTATED RINGERS 1,000 ML IV SCH ×3 (07:00→11:00)
[2023-07-21 07:40] LABS: BASOPHILS % (AUTO) 0.6 %; EOSINOPHILS % (AUTO) 0.8 %; HCT - HEMATOCRIT 34.9 % (37.0-47.0); HGB - HEMOGLOBIN 11.7 g/dL (12.0-16.0); LYMPHOCYTES # (AUTO) 1.1 10^3/uL (1.5-3.5); MEAN CORPUSCULAR HEMOGLOBIN 29.8 pg (27.0-31.0); MEAN CORPUSCULAR HGB CONC 33.5 g/dL (32.0-36.0); MEAN CORPUSCULAR VOLUME 88.8 fL (81.0-99.0); MEAN PLATELET VOLUME 12.5 fL (7.9-10.8); MONOCYTES # (AUTO) 0.3 10^3/uL (0.0-1.0); MONOCYTES % (AUTO) 6.2 %; NEUTROPHILS # (AUTO) 3.6 10^3/uL (1.5-6.6); PLT - PLATELET COUNT 116 10^3/uL (130-450); RED BLOOD COUNT 3.93 10^6/uL (4.20-5.40); RED CELL DISTRIBUTION WIDTH 14.7 % (12.0-15.0)
[2023-07-21] MEDS ORDERED: PHENYLEPHRINE HCL 0.5 MG/5 ML AMPULE ONE ×2 (08:01→09:29)
[2023-07-21] MEDS ORDERED: ePHEDrine 50 MG/ML VIAL IVP ONE (08:01)
[2023-07-21] MEDS ORDERED: OXYTOCIN 10 UNIT/ML VIAL ONE (08:07)
--- NOTE | 2023-07-21 08:17 | ANESTHESIA ---
Pre-Anesthesia VS, & Labs - Diagnosis twin gestation - Procedure c section Vital Signs: Temp Pulse Resp BP Pulse Ox O2 Flow Rate 36.7 C 87 17 119/76 98 07/21/23 06:32 07/21/23 06:08 07/21/23 06:08 07/21/23 06:08 07/21/23 06:08 Height: 5 ft 5 in Weight (kg): 81.647 kg Body Mass Index: 29.9 BMI Classification: Overweight - NPO >8 hours - Is Patient ?: Yes - Lab Results Current Lab Results: Laboratory Tests 07/21/23 07:08: WBC 5.0, RBC 3.93 L, Hgb 11.7 L, Hct 34.9 L, MCV 88.8, MCH 29.8, MCHC 33.5, RDW 14.7, Plt Count 116 L, MPV 12.5 H, Neut # (Auto) 3.6, Lymph # (Auto) 1.1 L, [place] # (Auto) 0.3, Eos # (Auto) 0.0, Baso # (Auto) 0.0, Absolute Nucleated RBC 0.00, Nucleated RBC % 0.0 Lab results reviewed: Yes Fish Bones: 07/21/23 07:08 Home Medications and Allergies Active Medications Lactated Ringer's (Lr) 1,000 mls @ 125 mls/hr IV .Q8H ARBEN Allergies/Adverse Reactions: Allergies Allergy/AdvReac Type Severity Reaction Status Date / Time Sulfa (Sulfonamide Allergy Itching Verified 05/26/20 21:50 Antibiotics) Anes History & Medical History - Anesthetic History Anesthesia Complications: reports: No previous complications Family history of Anesthesia Complications: Denies Family history of Malignant Hyperthermia: Denies - Medical History Cardiovascular: reports: None Pulmonary: reports: None Gastrointestinal: reports: None Smoking Status: Never smoker History of Cancer?: No - Surgical History Other Past Surgical History: wisdom teeth extraction Exam General: Alert, Oriented x3, Cooperative Dental: WNL Mouth Openin Fingerbreadth Neck Mobility: Normal Mallampati classification: II Thyromental Distance: 4-6 cm Respiratory: Lungs clear, Normal breath sounds, No respiratory distress Cardiovascular: Regular rate Neurological: Normal speech Mental/Cognitive Status: Alert/Oriented X3, Normal for patient Cognitive Status: Within normal limits Plan Anesthesia Type: Spinal Consent for Procedure(s) Verified and Reviewed: Yes Code Status: Attempt Resuscitation ASA classification: 2-Mild systemic disease Is this case an emergency?: No
[2023-07-21] MEDS ORDERED: ATROPINE ABBOJECT 1 MG/10 ML SYRINGE IVP PRN (08:18)
[2023-07-21] MEDS ORDERED: NALOXONE 0.4 MG/ML VIAL IVP PRN ×3 (08:18→10:08)
[2023-07-21] MEDS ORDERED: NALBUPHINE 10 MG/ML AMP IVP PRN (08:18)
[2023-07-21] MEDS ORDERED: fentaNYL 100 MCG/2 ML VIAL IVP PRN (08:18)
[2023-07-21] MEDS ORDERED: diphenhydrAMINE INJ 50 MG/ML VIAL IVP PRN (08:18)
[2023-07-21] MEDS ORDERED: ePHEDrine 50 MG/ML VIAL IVP PRN ×2 (08:18)
[2023-07-21] MEDS ORDERED: METOCLOPRAMIDE 10 MG/2 ML VIAL IVP PRN ×2 (08:18)
[2023-07-21] MEDS ORDERED: ONDANSETRON 4 MG/2 ML VIAL IVP PRN ×2 (08:18)
[2023-07-21] MEDS ORDERED: HYDROmorphone 0.5 MG/0.5 ML SYRINGE IVP PRN (08:18)
[2023-07-21] MEDS ORDERED: MORPHINE 2 MG/ML CARPUJECT IVP PRN (08:18)
[2023-07-21] MEDS ORDERED: fentaNYL 100 MCG/2 ML VIAL ONE (08:26)
[2023-07-21] MEDS ORDERED: fentaNYL 100 MCG/2 ML VIAL IT ONE (08:40)
[2023-07-21] MEDS ORDERED: ONDANSETRON 4 MG/2 ML VIAL ONE (09:08)
[2023-07-21] MEDS ORDERED: LIDOCAINE-PF 2% 10 ML AMP SUBQ ONE (09:08)
[2023-07-21] MEDS ORDERED: OXYTOCIN/SODIUM CHLORIDE 500 ML IV PRN (10:08)
[2023-07-21] MEDS ORDERED: NIFEdipine 10 MG CAPSULE PO PRN (10:08)
[2023-07-21] MEDS ORDERED: LABETALOL 20 MG/4 ML SYRINGE IVP PRN ×3 (10:08)
[2023-07-21] MEDS ORDERED: hydrALAZINE INJ 20 MG/ML VIAL IVP PRN ×2 (10:08)
[2023-07-21] MEDS ORDERED: oxyCODONE 5 MG TABLET PO PRN (10:08)
[2023-07-21] MEDS ORDERED: SIMETHICONE CHEW 80 MG TABLET PO PRN (10:08)
[2023-07-21] MEDS ORDERED: LACTATED RINGERS 1,000 ML IV ONE (10:16)
--- NOTE | 2023-07-21 11:17 | ANESTHESIA POST OP EVALUATION ---
Anesthesia Post Eval - Post Anesthesia Eval Vitals: Last Vital Signs Temp 36.9 C 07/21/23 10:52 Pulse 72 07/21/23 10:52 Resp 14 07/21/23 10:52 BP 99/68 07/21/23 10:52 Pulse Ox 98 07/21/23 10:52 O2 Flow Rate CV Function Including HR & BP: Stable Pain Control: Satisfactory Nausea & Vomiting: Negative Mental Status: Baseline Respiratory Status: Airway Patent Hydration Status: Satisfactory Anesthesia Complications: None
--- NOTE | 2023-07-21 11:20 | OPERATIVE REPORT ---
Operative Report - General Admit Date: 07/21/23 Procedure Date: 07/21/23 Planned Procedure: Primary low transverse c section and bilateral salpingectomies Pre-Op Diagnosis: twin 37w6d with breech baby A. undesired future fertility. Procedure Performed: as planned Post Op Diagnosis: same, delivered - Procedure Note Primary Surgeon: Jessica Millan MD Secondary Surgeon: JULIET Aguiar, 2nd assist Adalberto Ryan MD Anesthesia Provider: Jack Mcmillan CRNA and González Woodard CRNA Anesthesia Technique: Spinal Pathology: none IV Fluids (mL): 1,000 Estimated Blood Loss (mL): 800 Urine Output (mL): 150 Indications: Di/di twins with presenting fetus breech. Findings: Baby A male 2582 grams Apgars 8/9. Baby B female 2539 grams Apgars 6/9. Both 18.5 inches long. Placenta A with acentric cord insertion. B was bilobed with cord coming into the space in between lobes. ovaries appeared normal. Tubes normal with paratubal cyst removed on right. Uterus normal. Complications: none - Other Other Information/Narrative: Procedure/consents reviewed. Sure of decision for sterilization. Patient brought to OR. Spinal administered. Patient placed supine with left tilt. vaginal prep done. vallecillo placed. abdominal prep done. Anesthesia tested and found to be adequate. Nikita brought to room. Drapes placed. Pfannenstiel incision made with knife and carried thru to fascia which was transected bilaterally. inferior fascia elevated and muscles off. Superiorly same. Muscles easily and peritoneum was entered. Traci retractor placed and rolled down. Low transverse uterine incision made with knife. Baby A delivered from Breech presentation. Boy. Dried and stimulated. Waited one minute to clamp cord. Baby B bag entered. both were clear. Baby was transverse. got one leg and one arm first, then the other leg and baby was delivered. Dried, stimulated and suctioned. Tone poor and not breathing so cord clamped and cut. both babies handed off to waiting peds teams. Placenta delivered with gentle traction. Uterine tone was great. Oxytocin in IV. uterine incision closed wthi running locked 0 monocryl suture. Second horizontal imbricating layer placed. hemostasis observed. Right tube identified, grasped with babcocks and elevated. small Ligasure used to seal and cut tube to remove it. small paratubal cyst also removed. Hemostatic. Same procedure done on left. Uterine incision checked again and hemostatic. traci retractor removed. muscles checked for bleeding and good. Fascia closed with running 0 Vicryl suture. Subq closed wtih 3-0 Monocryl and then skin closed with 4-0 MOnocryl in subcuticular fashion. steristrips and bandage placed. no complications. Uterus expressed. Brought back to her room in [facility] in stable condition.
[2023-07-21] MEDS: KETOROLAC 30 MG/ML VIAL IVP SCH ×3 (12:08→23:58)
[2023-07-21] MEDS: ACETAMINOPHEN 500 MG TABLET PO SCH ×2 (13:40→21:50)
[2023-07-21] MEDS: DOCUSATE SODIUM 100 MG CAPSULE PO SCH (21:51)
[2023-07-22] MEDS: ACETAMINOPHEN 500 MG TABLET PO SCH ×3 (05:55→22:28)
[2023-07-22] MEDS: IBUPROFEN 600 MG TABLET PO SCH ×4 (05:55→23:52)
[2023-07-22 05:56] LABS: HCT - HEMATOCRIT 30.9 % (37.0-47.0); HGB - HEMOGLOBIN 10.3 g/dL (12.0-16.0); MEAN CORPUSCULAR HEMOGLOBIN 30.5 pg (27.0-31.0); MEAN CORPUSCULAR HGB CONC 33.3 g/dL (32.0-36.0); MEAN CORPUSCULAR VOLUME 91.4 fL (81.0-99.0); MEAN PLATELET VOLUME 12.4 fL (7.9-10.8); RED BLOOD COUNT 3.38 10^6/uL (4.20-5.40); RED CELL DISTRIBUTION WIDTH 14.9 % (12.0-15.0); WHITE BLOOD COUNT 6.5 x10^3/uL (4.8-10.8)
[2023-07-22] MEDS: DOCUSATE SODIUM 100 MG CAPSULE PO SCH ×2 (08:44→22:28)
--- NOTE | 2023-07-22 18:38 | PROVIDER PROGRESS NOTE ---
Subjective - Prog Note Date Prog Note Date: 07/22/23 Prog Note Time: 18:14 - Subjective Pt reports feeling: Improved Subjective: . Pt well, lochia appropriate, + amb, + void, + rush PO, + flatus Feeding going well -- breast x2 Bonding with baby Denies: F/C/N/V/CP/SOB Denies: dizziness, weakness, lightheadedness, difficulty with ambulation, palpitations Denies: ORTIZ / visual changes Objective - Vital Signs/Intake & Output Reviewed Vital Signs: Yes Vital Signs: Vital Signs x48h Temp Pulse Resp BP Pulse Ox 07/22/23 17:00 97.9 F 78 16 133/82 H 99 07/22/23 11:55 97.9 F 16 106/73 97 Intake & Output: Intake & Output 07/19/23 07/20/23 07/21/23 07/22/23 23:59 23:59 23:59 23:59 Intake Total 2000 400 Output Total 1450 2100 Balance 550 -1700 - Objective General Appearance: positive: No acute distress Eyes Bilateral: positive: Normal inspection ENT: positive: ENT inspection nml Neck: positive: Nml inspection Respiratory: positive: Chest non-tender, No respiratory distress, Breath sounds nml Cardiovascular: positive: Regular rate & rhythm, No murmur, No gallop Abdomen: positive: Non-tender, Other (Thea 1 below U INC CDI) Skin: positive: Color nml, No rash, Warm, Dry Extremities: positive: Non-tender, No pedal edema Neurologic/Psychiatric: positive: Oriented x3 - Lab Results Fish Bones: 07/22/23 05:41 Other Labs: Lab Results x24hrs 07/22/23 Range/Units 05:41 WBC 6.5 (4.8-10.8) x10^3/uL RBC 3.38 L (4.20-5.40) 10^6/uL Hgb 10.3 L (12.0-16.0) g/dL Hct 30.9 L (37.0-47.0) % MCV 91.4 (81.0-99.0) fL MCH 30.5 (27.0-31.0) pg MCHC 33.3 (32.0-36.0) g/dL RDW 14.9 (12.0-15.0) % Plt Count 91 L (130-450) 10^3/uL MPV 12.4 H (7.9-10.8) fL Assessment/Plan - Problem List (1) delivery delivered Impression: continue to advance anticipate D/C home tomorrow (2) state Impression: doing well continue to advance anticipate D/C home tomorrow with baby when all milestones met
[2023-07-23] MEDS: ACETAMINOPHEN 500 MG TABLET PO SCH (07:21)
[2023-07-23] MEDS: IBUPROFEN 600 MG TABLET PO SCH (07:22)
[2023-07-23 08:54] VITALS: BP 126/89; O2SAT 99
[2023-07-23] MEDS: DOCUSATE SODIUM 100 MG CAPSULE PO SCH (12:40)
--- NOTE | 2023-07-23 13:04 | DISCHARGE SUMMARY ---
"Discharge Summary Admit Date: 07/21/23 Discharge Date: 07/23/23 Discharging Provider: paula Primary Care Provider: grant Code Status: Attempt Resuscitation Condition at Discharge: Good Discharge Disposition: 01 Home, Self Care - DIAGNOSES Admission Diagnoses: IUP at term di/ di twins, breech presenting part post op Discharge Diagnoses with Status of Each Condition: IUP at term di/ di twins, breech presenting part post op - all milestones met post - doing well, precautions reviewed . - HPI History of Present Illness: Pt well, lochia appropriate, rush PO, + void, + flat, + ambulation Feeding going well -- breast Pt reports ready to go home, has safe home to return to Reviewed: discharge instructions, post- instructions, follow up instructions, precautions, precautions regarding: feeding, depression, bleeding, and anticipated post- course All questions answered Pt verbalized understanding VSS NAD Conjunctiva pink, pale sclera +S1, S2 CTAB Breasts soft, not engorged, no nipple cracking Abd soft, NT, ND Fundus firm below umbilicus Perineum intact, bleeding appropriate Ext: neg CCE - CONSULTS | PROCEDURES Procedures: 1LTCS post op care post care support - HOSPITAL COURSE Hospital Course: Pt admitted post op from C/S post operatively she did well and D/C home with both babies POD#2, well. - ALLERGIES Allergies/Adverse Reactions: Allergies Allergy/AdvReac Type Severity Reaction Status Date / Time Sulfa (Sulfonamide Allergy Itching Verified 05/26/20 21:50 Antibiotics) - LABS Result Diagrams: 07/22/23 05:41 - QUALITY (Female Hip Fx Only) Was patient sent home on osteoporosis medication?: No - FOLLOW UP Follow Up: 1 week at [facility] with Dr. Millan - TIME SPENT Time Spent in Discharge (Minutes): 30"
--- NOTE | 2023-07-23 13:15 | Discharge Plan ---
Discharge Plan Problem Reviewed?: Yes Disposition: Home, Self Care Condition: Good Diet: Regular Activity Restrictions: No Restrictions Shower Restrictions: No Driving Restrictions: No Weight Bearing: Full Weight Instruction Topics: , Depression , Change Expect Parents, Childbirth Breast Care, Checkup Well Baby Up to 1 Month Health Concerns: twins post op Plan of Treatment: routine post / post c section and care x2 Assessment: stable, doing well. No Smoking: If you smoke, Please STOP! Call for help. Follow-up with: Jessica Millan MD [Provider Admit Priv/Credential] -
--- NOTE | 2023-07-23 14:43 | Labor Flowsheet ---
Labor Flowsheet Datetime Report Generated by CPN: 07/23/2023 14:43 Datetime: 07/23/2023 08:45 Pulse: 90 SpO2 (%): 98 COMMUNICATION LaborFlag: OB Triage Datetime: 07/23/2023 08:44 VITAL SIGNS NBP Sys/Rebeca/Mean (mmHg): 126 : 89 : 97 Datetime: 07/21/2023 12:40 VAGINAL EXAM Membranes Ruptured Date/Time: 07/21/2023 09:30 Membranes Rupture Method: Artificial Amniotic Fluid Color: Clear Amniotic Fluid Amount: Moderate Amniotic Fluid Odor: None
== END 2023-07-23 14:15 | disposition home or self-care (01) | DRG 785 ==
LOC: FBP 05:56
PROVIDERS: ADMIT Obstetrics & Gynecology; ATTEND Obstetrics & Gynecology
PROC: 0UT70ZZ Resection of Bilateral Fallopian Tubes, Open Approach (ICD-10-PCS; 2023-07-21)
PROC: 10D00Z1 Extraction of Products of Conception, Low, Open Approach (ICD-10-PCS; principal; 2023-07-21 08:30)
DX: O32.1XX1 Maternal care for breech presentation, fetus 1 (principal); O30.043 Twin pregnancy, dichorionic/diamniotic, third trimester; Z3A.37 37 weeks gestation of pregnancy; Z37.2 Twins, both liveborn; O24.429 Gestational diabetes mellitus in childbirth, unspecified control
CPT/HCPCS: 36415; 85025; 85027; 86850; 86900; 86901; A9270; J2372; J7120

== ENCOUNTER 2023-09-10 08:16 | Outpatient (CLI) | payer OTHER ==
[2023-09-10 08:53] LABS: GTT GLUCOSE,FASTING 79 mg/dL (74-109)
== END 2023-09-10 08:17 | disposition home or self-care (01) ==
LOC: LAB 08:16
PROVIDERS: ATTEND Obstetrics & Gynecology
DX: O24.419 Gestational diabetes mellitus in pregnancy, unspecified control (principal)
CPT/HCPCS: 36415; 82951